=== PATIENT | male | born 1950 | race African-American/Black ===

== ENCOUNTER 2018-12-31 09:33 | Day surgery (SDC) | payer MEDICARE, BC, OTHER ==
[~2018-12-31 09:33] MED LIST: CHONDR SU A NA/HYALUR INTRAOC KIT (SURGICARE) ONE; EPINEPHRINE INJ/PF 1 MG/1 ML AMPULE ONE; KETOROLAC TROMETHAMINE 0.45% 4 DROP/0.4 ML DROPERETTE OS PRN; LIDOCAINE 1%/PHENYLEPHRINE 1.5% 1 ML VIAL ONE
[2018-12-31] MEDS: CYCLOPENTOLATE 0.2%/PHENYLEPHRINE 1% OPH SOLN 2 ML OS PRN ×3 (10:40→11:00)
[2018-12-31] MEDS: TETRACAINE HCL 0.5% OPH SOLN 4 ML OS PRN ×3 (10:40→11:17)
[2018-12-31] MEDS: TROPICAMIDE 1% OPH SOLN 15 ML OS PRN ×3 (10:40→11:00)
[2018-12-31] MEDS: BESIFLOXACIN HCL 0.6% OPH SUSP 5 ML BOTTLE OS PRN ×5 (10:40→11:40)
[2018-12-31] MEDS ORDERED: ONDANSETRON HCL INJ/PF 4 MG/2 ML SDV ONE (11:21)
[2018-12-31] MEDS ORDERED: MIDAZOLAM 2 MG/2 ML INJ ONE (11:22)
[2018-12-31] MEDS ORDERED: FENTANYL CITRATE INJ/PF 100 MCG/2 ML AMPUL ONE (11:22)
[2018-12-31] MEDS: DORZOLAMIDE HCL 2%/TIMOLOL MALEAT 0.5% OPH SOLN 10 ML OS PRN ×3 (11:38→11:40)
--- NOTE | 2018-12-31 13:07 | Operative Report ---
Operative Report-[facility] Operative Report: DATE OF SURGERY: 12/31/2018 PREOPERATIVE DIAGNOSIS: Cataracts, left eye POSTOPERATIVE DIAGNOSIS: Cataract, left eye OPERATION: Cataract extraction with insertion of an toric IOL of the left eye. Intraocular Lens Model: [18.0 sn6AT3 rotated to 173] reason for surgery was difficulty driving at night secondary to glare from headlights SURGEON: Prasad Donauhe MD ANESTHESIA: Topical PROCEDURE: After obtaining appropriate consent, the patient's left eye was prepped and draped in a sterile fashion as well as the surgeon in the sterile manner and cataract surgery was started. First a paracentesis blade was used to make a side-port incision. Viscoelastic was used to inflate the anterior chamber. Next a 2.4 mm incision was made with a 2.4 mm blade, clear corneal temporarily. A continuous capsulorrhexis was made using a cystotome and Utrata forceps. Following this hydrodissection was carried out to make commands fully loose and mobile and it was rotated 90 degrees. Following this, a divide and conquer technique was used to phacoemulsify the lens. The remaining cortex was removed with an irrigation/aspiration. Provisc was instilled into the capsular bag to inflate the bag.The intracular lens was placed. The remaining viscoelastic material was removed with irrigation/aspiration. Following this, the incision was found to be watertight. Besivance and Cosopt was instilled into the eye and a protective shield was placed over the eye. The patient was turned to the postoperative recovery in a stable condition.
== END 2018-12-31 12:32 | disposition home or self-care (01) ==
LOC: SC 09:33
PROVIDERS: ATTEND Internal Medicine
DX: H25.13 Age-related nuclear cataract, bilateral (principal); H40.023 Open angle with borderline findings, high risk, bilateral; H04.123 Dry eye syndrome of bilateral lacrimal glands; I10 Essential (primary) hypertension; F17.210 Nicotine dependence, cigarettes, uncomplicated; Z79.82 Long term (current) use of aspirin; Z79.02 Long term (current) use of antithrombotics/antiplatelets
CPT/HCPCS: 66984; 00142; J2250; J3490 ×2; A9270; J0171; J3010; J2405; J2370; 142

== ENCOUNTER 2019-01-18 07:07 | Day surgery (SDC) | payer BC, OTHER, MEDICARE ==
[~2019-01-18 07:07] MED LIST changes: -CHONDR SU A NA/HYALUR INTRAOC KIT (SURGICARE) ONE; +DORZOLAMIDE HCL 2%/TIMOLOL MALEAT 0.5% OPH SOLN 10 ML OD PRN; -EPINEPHRINE INJ/PF 1 MG/1 ML AMPULE ONE; +FENTANYL CITRATE INJ/PF 100 MCG/2 ML AMPUL ONE; +KETOROLAC TROMETHAMINE 0.45% 4 DROP/0.4 ML DROPERETTE OD PRN; -KETOROLAC TROMETHAMINE 0.45% 4 DROP/0.4 ML DROPERETTE OS PRN; -LIDOCAINE 1%/PHENYLEPHRINE 1.5% 1 ML VIAL ONE; +MIDAZOLAM 2 MG/2 ML INJ ONE; +ONDANSETRON HCL INJ/PF 4 MG/2 ML SDV ONE
[2019-01-18] MEDS ORDERED: LIDOCAINE 1%/PHENYLEPHRINE 1.5% 1 ML VIAL ONE (07:10)
[2019-01-18] MEDS ORDERED: CHONDR SU A NA/HYALUR INTRAOC KIT (SURGICARE) ONE (07:10)
[2019-01-18] MEDS ORDERED: EPINEPHRINE INJ/PF 1 MG/1 ML AMPULE ONE (07:10)
[2019-01-18] MEDS: CYCLOPENTOLATE 0.2%/PHENYLEPHRINE 1% OPH SOLN 2 ML OD PRN ×3 (07:47→08:02)
[2019-01-18] MEDS: TETRACAINE HCL 0.5% OPH SOLN 4 ML OD PRN ×3 (07:47→08:15)
[2019-01-18] MEDS: TROPICAMIDE 1% OPH SOLN 15 ML OD PRN ×3 (07:47→08:02)
[2019-01-18] MEDS: BESIFLOXACIN HCL 0.6% OPH SUSP 5 ML BOTTLE OD PRN ×3 (07:47→08:44)
--- NOTE | 2019-01-18 16:11 | Operative Report ---
Operative Report-[facility] Operative Report: DATE OF SURGERY: 01/18/2019 PREOPERATIVE DIAGNOSIS: Cataract, right eye POSTOPERATIVE DIAGNOSIS: Cataract, right eye OPERATION: Cataract extraction with insertion of an toric IOL of the right eye. Intraocular Lens Model: [19.0 sn6at4 rotated to 177 degrees] Reason for surgery was difficulty seeing small print SURGEON: Prasad Donahue MD ANESTHESIA: Topical PROCEDURE: After obtaining appropriate consent, the patient's right eye was prepped and draped in a sterile fashion as well as the surgeon in the sterile manner and cataract surgery was started. First a paracentesis blade was used to make a side-port incision. Viscoelastic was used to inflate the anterior chamber. Next a 2.4 mm incision was made with a 2.4 mm blade, clear corneal temporarily. A continuous capsulorrhexis was made using a cystotome and Utrata forceps. Following this hydrodissection was carried out to make the shailesh fully loose and mobile and it was rotated. Following this, a divide and conquer technique was used to phacoemulsify the shailesh. The remaining cortex was removed with an irrigation/aspiration. Provisc was instilled into the capsular bag to inflate the bag. The intraocular lens was placed. The remaining viscoelastic material was removed with irrigation/aspiration. Following this, the incision was found to be watertight. Besivance and Cosopt was instilled into the eye and a protective shield was placed over the eye. The patient was reurned to the postoperative recovery in a stable condition.
== END 2019-01-18 09:26 | disposition home or self-care (01) ==
LOC: SC 07:07
PROVIDERS: ATTEND Internal Medicine
DX: H25.11 Age-related nuclear cataract, right eye (principal); Z96.1 Presence of intraocular lens; Z79.02 Long term (current) use of antithrombotics/antiplatelets; I10 Essential (primary) hypertension; K21.9 Gastro-esophageal reflux disease without esophagitis; D64.9 Anemia, unspecified; Z79.82 Long term (current) use of aspirin
CPT/HCPCS: 66984; J2250; J3490 ×2; J0171; J3010; J2405; J2370; V2787

== ENCOUNTER → 2019-01-21 | Outpatient (CLI) | payer MEDICARE, BC, OTHER ==
--- NOTE | 2019-01-22 15:52 | XCELERA REPORT ---
[address] [address] Lower Extremity Arterial Evaluation Name: PRASANTH RAY Age: 68 yrs Gender: Male : 1950 Patient Status: Outpatient Patient Location: Study Date: 01/21/2019 08:13 AM Procedure: A color flow and duplex scan of the lower extremity arteries was performed bilaterally with velocity and waveform anaylsis. Reason For Study: PVD Ordering Physician: BONITA WALKER Performed By: Mike Grove Measurements and Calculations Right Left DIRECTOR STRATEGY PSV 113.1 167.0 cm/sec Prox PFA PSV -132.8cm/sec Prox SFA PSV 106.4 cm/sec Mid SFA PSV -124.3cm/sec Dist SFA PSV -83.5 -212.1cm/sec Prox Pop A PSV 110.8 58.1 cm/sec Dist Pop A PSV -70.7 cm/sec Prox RICKEY PSV 105.6 36.7 cm/sec Dist RICKEY PSV 8.6 12.2 cm/sec Prox SPEECH LANGUAGE PATHOLOGY ASSISTANT PSV 116.9 cm/sec Mid SPEECH LANGUAGE PATHOLOGY ASSISTANT PSV 73.0 cm/sec Dist SPEECH LANGUAGE PATHOLOGY ASSISTANT PSV 35.2 46.0 cm/sec Dist Timothy A 64.9 cm/sec PSV Cesar Pedis PSV 30.4 9.2 cm/sec Right Side Arterial Evaluation Normal velocity and biphasic waveform,moderate spectral broadening noted in the Common Femoral artery at a patent graft interface . No flow in the Deep Femoral and proximal Femoral. Biphasic with normal velocity in the Popliteal through Posterior, Anterior Tibial and Peroneal arteries. Distally poor flow in the Peroneal. Ankle Brachial index not ordered. Left Side Arterial Evaluation Normal velocity and triphasic waveforms noted from the Common Femoral artery to the Posterior tibial . Biphasic with low velocity in the Anterior tibial artery. Retrograde, low velocity, monophasic in the Dorsalis Pedis.. Ankle Brachial index not ordered. Interpretation Summary Moderate hemodynamically significant lesions in the bilateral lower extremities, on duplex imaging, at rest. Duplex shows complex findings. On the right , patent graft, likely Femero Popliteal is seen with compensation for Femoral occlusion. Sequential Anterior tibial disease. On the left, findings mostly confined to infrageniculate vessels. : BONITA WALKER > Colin Cha
== END ==
LOC: SP 07:30
PROVIDERS: ATTEND Physician Assistant
DX: I73.9 Peripheral vascular disease, unspecified (principal)
CPT/HCPCS: 93925